=== PATIENT | female | born 1955 | race Caucasian/White ===

== ENCOUNTER → 2017-06-11 | Outpatient (CLI) | payer BC, OTHER | LOC: RAD 03:44 | DX: Z12.31 Encounter for screening mammogram for malignant neoplasm of breast (principal) ==

== ENCOUNTER → 2018-06-06 | Outpatient (CLI) | payer OTHER | LOC: CAT 10:34 | DX: Z13.6 Encounter for screening for cardiovascular disorders (principal); E78.00 Pure hypercholesterolemia, unspecified ==

== ENCOUNTER → 2018-06-25 | Outpatient (CLI) | payer BC, OTHER | LOC: RAD 01:08 | DX: Z12.31 Encounter for screening mammogram for malignant neoplasm of breast (principal) ==

== ENCOUNTER → 2019-11-03 | Outpatient (CLI) | payer BC, OTHER | LOC: RAD 13:06 | DX: Z12.31 Encounter for screening mammogram for malignant neoplasm of breast (principal) ==

== ENCOUNTER → 2019-11-19 | Outpatient (CLI) | payer BC, OTHER ==
[2019-11-19 14:09] LABS: CREATININE 0.7 mg/dL (0.6-1.0)
== END ==
LOC: CAT 13:09
PROVIDERS: ATTEND Nurse Practitioner
DX: R07.89 Other chest pain (principal); K76.0 Fatty (change of) liver, not elsewhere classified

== ENCOUNTER → 2020-05-18 | Outpatient (CLI) | payer OTHER | LOC: CAT 10:59 | PROVIDERS: ATTEND Family Medicine | DX: Z13.6 Encounter for screening for cardiovascular disorders (principal); I25.10 Atherosclerotic heart disease of native coronary artery without angina pectoris; E78.00 Pure hypercholesterolemia, unspecified ==

== ENCOUNTER → 2020-11-14 | Outpatient (CLI) | payer OTHER, BC | LOC: BC 09:49 | PROVIDERS: ATTEND Family Medicine | DX: Z12.31 Encounter for screening mammogram for malignant neoplasm of breast (principal) ==